=== PATIENT | female | born 1990 | race African-American/Black ===

== ENCOUNTER 2017-05-26 19:34 | Emergency (ER) | payer MEDICAID, OTHER ==
[~2017-05-26] VITALS: Ht 162.6 cm; Wt 90.0 kg
[2017-05-26 20:22] VITALS: BP 173/102
== END 2017-05-26 22:44 | disposition left against medical advice (07) ==
LOC: ER 19:34
DX: Z53.21 Procedure and treatment not carried out due to patient leaving prior to being seen by health care provider (principal)

== ENCOUNTER 2017-07-13 12:50 | Emergency (ER) | payer MEDICAID ==
[~2017-07-13] VITALS: Ht 160 cm; Wt 86.0 kg
[2017-07-13] MEDS ORDERED: SODIUM CHLORIDE 0.9% 1,000 ML IV ONE (14:05)
[2017-07-13] MEDS ORDERED: ONDANSETRON HCL 4MG/2ML VIAL IV ONE ×2 (14:15→17:15)
[2017-07-13] MEDS ORDERED: MORPHINE SULFATE 4 MG/ML CPJ (NOT FOR IM USE) IV ONE ×2 (14:15→17:15)
[2017-07-13] MEDS ORDERED: KETOROLAC 30MG/ML VIAL IV ONE (14:15)
[2017-07-13] MEDS ORDERED: BACITRACIN ZINC OINT UDPKT TOP ONE (14:15)
[2017-07-13] MEDS ORDERED: LIDOCAINE HCL 1%/EPI 1:200,000 30 ML VIAL MC ONE ×3 (14:15→17:45)
[2017-07-13 14:56] LABS: HCG SCREEN NEGATIVE
[2017-07-13] MEDS ORDERED: CEFAZOLIN 1000MG PREMIX 50 ML IV ONE (17:45)
[2017-07-13] MEDS ORDERED: LIDOCAINE HCL 1% 20ML VIAL (Pyxis) INJ MC ONE ×2 (17:45)
[2017-07-13] MEDS ORDERED: LIDOCAINE HCL/EPINEPHRINE 1%-EPI 1:100,000 50 ML VIAL INFIL ONE (17:49)
[2017-07-13 19:45] VITALS: BP 141/78
== END 2017-07-13 20:00 | disposition home or self-care (01) ==
LOC: ER 16:49
DX: S51.812A Laceration without foreign body of left forearm, initial encounter (principal); S41.011A Laceration without foreign body of right shoulder, initial encounter; S11.81XA Laceration without foreign body of other specified part of neck, initial encounter; E05.90 Thyrotoxicosis, unspecified without thyrotoxic crisis or storm; F12.10 Cannabis abuse, uncomplicated; X99.8XXA Assault by other sharp object, initial encounter; Y93.89 Activity, other specified; Y92.89 Other specified places as the place of occurrence of the external cause
CPT/HCPCS: 12006; 71045; 84703; 96361; 96365; 96375; 96376; 99285; J0690; J1885; J2270; J2405; J3490; J7030; Z7610

== ENCOUNTER 2017-07-20 11:38 | Emergency (ER) | payer MEDICAID ==
[~2017-07-20] VITALS: Ht 160 cm; Wt 95.0 kg
[2017-07-20 13:58] VITALS: BP 130/90
== END 2017-07-20 15:25 | disposition home or self-care (01) ==
LOC: ER 13:30
DX: Z48.00 Encounter for change or removal of nonsurgical wound dressing (principal); Z48.02 Encounter for removal of sutures
CPT/HCPCS: 99281; Z7610

== ENCOUNTER 2017-11-16 01:47 | Emergency (ER) | payer MEDICAID ==
[~2017-11-16] VITALS: Ht 160 cm; Wt 86.0 kg
[2017-11-16] MEDS ORDERED: LORAZEPAM 2MG/ML CPJ IV ONE (03:30)
[2017-11-16] MEDS ORDERED: METOPROLOL TARTRATE 5MG/5ML VIAL IV ONE (03:30)
[2017-11-16 04:04] LABS: BASOPHILS % 0.8 % (0.0-2.0); EOSINOPHILS % 0.8 % (0.0-5.0); HEMATOCRIT. 29.6 % (36.0-48.0); LYMPHOCYTES % 33.4 % (20.0-50.0); MEAN CORPUSCULAR HEMOGLOBIN 25.1 pg (28.0-32.0); MEAN PLATELET VOLUME 8.1 fl (7.4-10.4); MONOCYTES % 9.2 % (2.0-8.0); NEUTROPHILS % 55.8 % (40.0-76.0); PLATELET 239 x1000/uL (130-400); RED BLOOD CELL COUNT 4.01 mill/uL (4.2-5.4)
[2017-11-16 04:10] LABS: CHLORIDE 108 mEq/L (98-107)
[2017-11-16 06:15] VITALS: BP 168/106
== END 2017-11-16 06:26 | disposition home or self-care (01) ==
LOC: ER 01:47
DX: E03.9 Hypothyroidism, unspecified (principal); I50.9 Heart failure, unspecified; Z90.49 Acquired absence of other specified parts of digestive tract; F17.200 Nicotine dependence, unspecified, uncomplicated; F12.10 Cannabis abuse, uncomplicated; F14.10 Cocaine abuse, uncomplicated
CPT/HCPCS: 36415; 71045; 80053; 81025; 83880; 84484; 85025; 93005; 96374; 96375; 99285; J2060; J3490

== ENCOUNTER 2018-07-25 17:55 | Emergency (ER) | payer MEDICAID ==
[~2018-07-25] VITALS: Ht 162.6 cm; Wt 88.0 kg
[2018-07-25 22:34] LABS: CLARITY URINE CLOUDY (CLEAR); COLOR URINE YELLOW (YELLOW); KETONES URINE NEGATIVE (NEGATIVE); LEUKOCYTE ESTERASE URINE 2+ (NEGATIVE); NITRITE URINE NEGATIVE (NEGATIVE); OCCULT BLOOD URINE NEGATIVE (NEGATIVE); PH URINE 5.5 (4.5-8.0); PROTEIN URINE NEGATIVE (NEGATIVE); SPECIFIC GRAVITY URINE 1.026 (1.005-1.030)
[2018-07-25 22:49] LABS: *AMPHETAMINES SCREEN URINE NEGATIVE (NEGATIVE); *BARBITURATES SCREEN URINE NEGATIVE (NEGATIVE); *BENZODIAZEPINES SCREEN URINE NEGATIVE (NEGATIVE)
[2018-07-25 22:50] LABS: *COCAINE SCREEN URINE NEGATIVE (NEGATIVE); METHADONE URINE SCREEN NEGATIVE (NEGATIVE); OPIATES URINE SCREEN NEGATIVE (NEGATIVE); PHENCYCLIDINE URINE SCREEN NEGATIVE (NEGATIVE)
[2018-07-25 22:53] LABS: CANNABINOID URINE SCREEN PRESUMTIVE POSITIVE (NEGATIVE)
[2018-07-25 23:19] LABS: BASOPHILS % 0.5 % (0.0-2.0); EOSINOPHILS % 0.6 % (0.0-5.0); HEMATOCRIT. 37.3 % (36.0-48.0); HEMOGLOBIN. 12.2 g/dL (12.0-16.0); LYMPHOCYTES % 51.9 % (20.0-50.0); MEAN CORPUSCULAR HEMOGLOBIN 24.9 pg (28.0-32.0); MEAN CORPUSCULAR VOLUME 75.9 fL (81.0-99.0); MEAN PLATELET VOLUME 8.1 fl (7.4-10.4); MONOCYTES % 7.8 % (2.0-8.0); NEUTROPHILS % 39.2 % (40.0-76.0); PLATELET 276 x1000/uL (130-400); RED BLOOD CELL COUNT 4.91 mill/uL (4.2-5.4); RED CELL DISTRIBUTION WIDTH 14.3 % (11.6-14.6)
[2018-07-25 23:24] LABS: CHLORIDE 108 mEq/L (98-107); PROTHROMBIN TIME 10.3 sec (9.6-11.0)
[2018-07-25 23:26] LABS: HCG SCREEN NEGATIVE
[2018-07-25 23:28] LABS: ETHANOL BLOOD < 10 mg/dL
[2018-07-25] MEDS: SODIUM CHLORIDE 0.9% 1,000 ML IV ONE (23:29)
[2018-07-26 01:42] VITALS: BP 139/67
== END 2018-07-26 02:09 | disposition home or self-care (01) ==
LOC: ER 17:55
DX: N39.0 Urinary tract infection, site not specified (principal); E66.01 Morbid (severe) obesity due to excess calories; R42 Dizziness and giddiness; I10 Essential (primary) hypertension; F17.290 Nicotine dependence, other tobacco product, uncomplicated; E05.90 Thyrotoxicosis, unspecified without thyrotoxic crisis or storm; Z90.49 Acquired absence of other specified parts of digestive tract
CPT/HCPCS: 36415; 80053; 80305; 80320; 81003; 81025; 83690; 84443; 84484; 84703; 85025; 85610; 93005; 96360; 96361; 99284; J7030; Z7610; G0480

== ENCOUNTER 2019-04-04 01:49 | Emergency (ER) | payer MEDICAID, OTHER ==
[~2019-04-04] VITALS: Ht 162.6 cm; Wt 90.7 kg
[2019-04-04] MEDS ORDERED: IBUPROFEN 600MG TABLET PO ONE (02:45)
[2019-04-04 02:50] VITALS: BP 119/89
== END 2019-04-04 02:51 | disposition home or self-care (01) ==
LOC: ER 01:49
DX: S46.811A Strain of other muscles, fascia and tendons at shoulder and upper arm level, right arm, initial encounter (principal); V49.49XA Driver injured in collision with other motor vehicles in traffic accident, initial encounter; Y93.89 Activity, other specified; Y92.89 Other specified places as the place of occurrence of the external cause; Y99.8 Other external cause status; F17.290 Nicotine dependence, other tobacco product, uncomplicated; Z90.89 Acquired absence of other organs; E05.90 Thyrotoxicosis, unspecified without thyrotoxic crisis or storm
CPT/HCPCS: 81025; 99282

== ENCOUNTER 2019-04-13 16:19 | Emergency (ER) | payer MEDICAID ==
[~2019-04-13] VITALS: Ht 165.1 cm; Wt 89.0 kg
[2019-04-13] MEDS ORDERED: PREDNISONE 20MG TABLET PO ONE (22:30)
[2019-04-13 22:37] VITALS: BP 115/64
== END 2019-04-13 22:54 | disposition home or self-care (01) ==
LOC: ER 16:28
DX: R20.2 Paresthesia of skin (principal); E05.90 Thyrotoxicosis, unspecified without thyrotoxic crisis or storm
CPT/HCPCS: 99282; J7512

== ENCOUNTER 2020-04-14 21:57 | Emergency (ER) | payer MEDICAID ==
[~2020-04-14] VITALS: Ht 162.6 cm; Wt 117.0 kg
[2020-04-14] MEDS ORDERED: ACETAMINOPHEN WITH CODEINE 300/30MG TABLET PO ONE (22:30)
[2020-04-14 23:07] LABS: CLARITY URINE CLEAR (CLEAR); COLOR URINE YELLOW (YELLOW); KETONES URINE NEGATIVE (NEGATIVE); LEUKOCYTE ESTERASE URINE 1+ (NEGATIVE); NITRITE URINE NEGATIVE (NEGATIVE); OCCULT BLOOD URINE NEGATIVE (NEGATIVE); PROTEIN URINE 2+ (NEGATIVE); SPECIFIC GRAVITY URINE 1.019 (1.005-1.030)
[2020-04-15 01:51] VITALS: BP 118/72
== END 2020-04-15 01:58 | disposition home or self-care (01) ==
LOC: ER 21:57
DX: O26.892 Other specified pregnancy related conditions, second trimester (principal); S80.12XA Contusion of left lower leg, initial encounter; S30.1XXA Contusion of abdominal wall, initial encounter; S20.229A Contusion of unspecified back wall of thorax, initial encounter; S86.911A Strain of unspecified muscle(s) and tendon(s) at lower leg level, right leg, initial encounter; Z3A.25 25 weeks gestation of pregnancy; Z90.89 Acquired absence of other organs; V43.52XA Car driver injured in collision with other type car in traffic accident, initial encounter; Y93.89 Activity, other specified; Y92.488 Other paved roadways as the place of occurrence of the external cause
CPT/HCPCS: 73560; 73590; 76805; 81003; 93005; 99285

== ENCOUNTER 2023-09-22 12:11 | Emergency (ER) | payer MEDICAID ==
[~2023-09-22] VITALS: Ht 162.6 cm; Wt 125.0 kg
[2023-09-22 12:15] VITALS: O2SAT 99
[2023-09-22] MEDS ORDERED: ACETAMINOPHEN 325MG TABLET PO STA (12:49)
[2023-09-22] MEDS ORDERED: FLUORESCEIN SODIUM 1MG/STRIP LEFTEYE ONE (13:00)
[2023-09-22] MEDS ORDERED: TETRACAINE 0.5% OPHTH DROPS 4ML LEFTEYE ONE (13:00)
[2023-09-22] MEDS: ACETAMINOPHEN 325MG TABLET PO NR (14:41)
[2023-09-22] MEDS ORDERED: ACET-2708 PO (15:26)
[2023-09-22] MEDS ORDERED: CIPR2.5D17 LEFTEYE (15:26)
[2023-09-22] MEDS: TETRACAINE 0.5% OPHTH DROPS 4ML LEFTEYE NR (15:52)
[2023-09-22] MEDS: FLUORESCEIN SODIUM 1MG/STRIP LEFTEYE NR (15:52)
[2023-09-22 15:54] VITALS: BP 148/98; PULSE 73; RESP 18; TEMP 98.7
== END 2023-09-22 15:57 | disposition home or self-care (01) ==
LOC: ER 12:11
DX: S00.83XA Contusion of other part of head, initial encounter (principal); H10.89 Other conjunctivitis; M25.562 Pain in left knee; V98.8XXA Other specified transport accidents, initial encounter; Y93.89 Activity, other specified; Y92.89 Other specified places as the place of occurrence of the external cause; Y99.8 Other external cause status
CPT/HCPCS: 70486; 73562; 81025; 99284